=== PATIENT | male | born 1950 | race Two or more races ===

== ENCOUNTER 2021-07-13 22:01 | Emergency (ER) | payer OTHER ==
[~2021-07-13] VITALS: Ht 175.3 cm; Wt 74.8 kg
[2021-07-13] MEDS ORDERED: COZAAR25 MG (22:32)
[2021-07-13] MEDS ORDERED: CARVEDILOL 12.5 MG (22:32)
[2021-07-13] MEDS ORDERED: ATORVASTATIN (22:33)
[2021-07-13] MEDS ORDERED: PLAVIX75 MG (22:33)
[2021-07-13] MEDS ORDERED: OMEPRAZOLE 40 MG. (22:34)
== END 2021-07-14 00:04 | disposition home or self-care (01) ==
LOC: ER 22:01
DX: H11.31 Conjunctival hemorrhage, right eye (principal)